=== PATIENT | female | born 1985 ===

== ENCOUNTER 2018-02-25 20:51 | Emergency (ER) | payer SELFPAY ==
[2018-02-25 22:50] LABS: Bilirubin Negative (Negative); Blood, Urine Negative (Negative); Clarity CLEAR (Clear); Glucose, Urine (Dipstick) Negative (Negative); Leukocyte Negative (Negative); Nitrite Negative (Negative); Protein, Urine (Dipstick) Negative (Neg-Trace); Specific Gravity, Urine 1.023 (1.002-1.036); Urobilinogen 0.2 mg/dL (0.2-1.0); pH, Urine 6.5 (5.0-9.0)
[2018-02-25 22:51] LABS: Pregnancy Test - Urine (BHCG) Negative (Negative); Pregu Control Background? CLEAR/WHITE (CLR/WHITE); Pregu Control Bar Appear? YES (CONTROL BAR); Specific Gravity 1.023 (1.002-1.036)
[2018-02-25] MEDS ORDERED: Ondansetron ODT 4 MG TAB ONE (23:22)
[2018-02-25] MEDS ORDERED: Azithromycin 250 MG TAB ONE (23:22)
[2018-02-25] MEDS ORDERED: cefTRIAXone\\ROCEPHIN 250 MG VIAL ONE (23:22)
[2018-02-25] MEDS ORDERED: metroNIDAZOLE 250 MG TAB ONE (23:22)
[2018-02-25] MEDS ORDERED: Lidocaine 1% PF 5 ML VIAL ONE (23:22)
[2018-02-27 21:16] LABS: Chlamydia by PCR Not Detected (NotDetected); GC by PCR Not Detected (NotDetected)
== END 2018-02-25 23:34 | disposition home or self-care (01) ==
LOC: ERS 20:51
DX: K64.4 Residual hemorrhoidal skin tags (principal)
CPT/HCPCS: 81003; 81025; 82274; 87491; 87591; 96372; J0696; J2001; Q0162